=== PATIENT | female | born 1950 | race Caucasian/White ===

== ENCOUNTER → 2024-12-15 | Outpatient (CLI) | payer MEDICARE, SELFPAY ==
--- NOTE | 2024-12-15 | XR_ITS ---
Examination: Lumbar spine 3 views Technique one AP lateral coned lateral lower lumbar spine 3 views Exam date 9: December 15, 2024 1226 hours Comparison June 23, 2024 INDICATIONS: Status post lumbar spine surgery 1.5 weeks ago. FINDINGS: Additional lumbar stabilization with transpedicular fixation screws extending from L1 to the sacrum Satisfactory alignment Disc spacers IMPRESSION: Status post extensive transpedicular lumbar stabilization with satisfactory alignment
== END | disposition home or self-care (01) ==
PROVIDERS: PCP Family Medicine; Referring Provider Orthopaedic Surgery Orthopaedic Surgery of the Spine; Visit Provider Orthopaedic Surgery Orthopaedic Surgery of the Spine
DX: M54.51 Vertebrogenic low back pain (principal); Z47.89 Encounter for other orthopedic aftercare
CPT/HCPCS: 72100

== ENCOUNTER → 2025-01-11 | Outpatient (CLI) | payer MEDICARE, SELFPAY ==
--- NOTE | 2025-01-11 16:09 | XR_ITS ---
Examination: Lumbar spine, 5 views Technique: Lumbar spine AP, lateral, coned lateral lower lumbar spine, bilateral obliques 5 views Exam date and time: January 11, 2025 1621 hours Comparison December 15, 2024 INDICATIONS: Postop back surgery one month ago. FINDINGS: Stable alignment transpedicular lumbar fusion L1 to the sacrum Stable position of the orthopedic hardware No lumbar fracture No cortical bone destruction IMPRESSION: Stable and satisfactory alignment transpedicular extensive lumbar fusion
--- NOTE | 2025-01-11 16:09 | XR_ITS ---
Examination:Right hip AP, lateral, AP pelvis 3 views Technique: Hip AP lateral, AP pelvis, 3 views Exam date and time:January 11, 2025 1621 hours INDICATIONS: Right hip pain beginning in June 2024. FINDINGS: Significant osteopenia No right hip fracture or dislocation Mild right hip osteoarthritis Healed fracture left hip Extensive transpedicular lower lumbar stabilization IMPRESSION: No radiographic fracture or dislocation Mild right hip osteoarthritis.
== END | disposition home or self-care (01) ==
PROVIDERS: PCP Family Medicine; Referring Provider Family Medicine; Visit Provider Orthopaedic Surgery Orthopaedic Surgery of the Spine
DX: M16.11 Unilateral primary osteoarthritis, right hip (principal); M43.26 Fusion of spine, lumbar region; Z47.89 Encounter for other orthopedic aftercare
CPT/HCPCS: 72110; 73502

== ENCOUNTER 2025-01-29 03:47 | Inpatient (IN) | payer MEDICARE, SELFPAY ==
[2025-01-29] VITALS (12 sets, daily range): BP systolic 111–187; BP diastolic 68–90; PULSE 88–118; RESP 17–95; TEMP 36.7–37.1; O2SAT 92–100; BMI 23.8; BMI 24.4
--- NOTE | 2025-01-29 | XR_ITS ---
Examination: MRI lumbar spine without contrast Date and time of exam: January 29, 2025 at 1652 hours INDICATIONS: CT examination pelvis today cortical erosions contiguous endplates L5-S1 Technique: Multiple MRI axial and sagittal sections lumbar spine. Sagittal T2-weighted images, TR 3500, TE 118 T1 weighted transverse sections, TR 688 T8.5, T2-weighted sagittal sections T1 weighted sagittal sections TR 621, TE 30 T2 axial sections, TR 4, 190, TE 84. Findings: Status post transpedicular fusion L4-S1 with disc spacers which create magnetic susceptibility artifacts Alignment is satisfactory Diffuse lumbar dissociation On the T2-weighted images there is no increased signal in the contiguous margins at the L5-S1 level nor is there enhancement in the disc space Alignment of the vertebral bodies is satisfactory No focal disc protrusion IMPRESSION: MRI study does not confirm osteomyelitis or discitis at the L5-S1 level
--- NOTE | 2025-01-29 04:09 | XR_ITS ---
Examination: Bilateral hips AP lateral AP, lateral, AP pelvis 5 views Technique: Bilateral hips AP lateral, AP pelvis, 5 views Exam date and time:January 29, 2025, 0416 hours INDICATIONS: Patient fell today with injury to the left hip, left hip pain. FINDINGS: Healed left hip fracture, no acute left hip fracture Right hip bones of the pelvis intact Extensive lumbar stabilization procedure. IMPRESSION: No acute hip or pelvic fracture Suggest 1 day to 2 day follow-up AP pelvis if pain persists
--- NOTE | 2025-01-29 04:14 | PD.EDFALL ---
ED Fall Injury RME/HPI General Chief Complaint: Fall Stated Complaint: FALL Time Seen by Provider: 01/29/25 04:09 Arrival date/time: 01/29/25 03:47 RME / HPI RME / HPI Narrative: Dr. Boucher?s Main ED Evaluation: 74yo female with a history of HTN, HLD, recent back surgery BIBA from home presents to the ED for a fall. Patient states she was walking to the bathroom when my legs gave out and fell. She was unable to get up and laid on the floor for 3 hours prior to calling 911. Patient endorses having significant left hip pain. Patient is not on any pain medication at home. Patient denies any head strikes or loss of consciousness. Patient denies any other injuries. Patient denies any headache, neck pain, chest pain, abdominal pain or any other associated symptoms. Related Data Home Medications ?Medication ?Instructions ?Recorded ?Confirmed atorvastatin 40 mg tablet 40 mg PO QDAY 10/22/18 09/09/19 carvedilol 6.25 mg tablet 6.25 mg PO BID 10/22/18 09/09/19 losartan 100 mg tablet 100 mg PO QDAY 10/22/18 09/09/19 potassium chloride 10 mEq 10 meq PO QDAY 10/22/18 09/09/19 tablet,extended release aspirin 81 mg tablet,delayed 81 mg PO QDAY 09/09/19 09/09/19 release bupropion HCl 100 mg tablet 100 mg PO QDAY 09/09/19 09/09/19 cyclobenzaprine 10 mg tablet 10 mg PO HS 09/09/19 09/09/19 furosemide 40 mg tablet 40 mg PO QDAY 09/09/19 09/09/19 gabapentin 600 mg tablet 600 mg PO BID 09/09/19 09/09/19 mirtazapine 30 mg tablet 30 mg PO QDAY 09/09/19 09/09/19 montelukast 10 mg tablet 10 mg PO QDAY 09/09/19 09/09/19 (Singulair) trazodone 100 mg tablet 100 mg PO HS 09/09/19 09/09/19 Previous Rx's ?Medication ?Instructions ?Recorded pantoprazole 40 mg tablet,delayed 40 mg PO QDAY #90 tabs 10/25/18 release clopidogrel 75 mg tablet (Plavix) 75 mg PO QDAY #90 tabs 09/11/19 isosorbide mononitrate 30 mg 30 mg PO QDAY #30 tabs 09/11/19 tablet,extended release 24 hr sulfamethoxazole 800 1 tab PO BID #14 tabs 12/25/23 mg-trimethoprim 160 mg tablet (Bactrim DS) Allergies Allergy/AdvReac Type Severity Reaction Status Date / Time morphine Allergy Verified 01/29/25 04:06 Review of Systems Review of Systems Systems Reviewed: All systems reviewed, normal except as documented Past Medical History Past Medical History NEUROLOGIC: Negative Neurological Disorders or Seizures CARDIAC: Positive Cardiac Disorders, Peripheral Vascular Disease, Hypercholesterolemia and Hypertension; Negative Congestive Heart Failure RESPIRATORY: Negative Chronic Obstructive Pulmonary Disease (COPD) or Asthma GASTROINTESTINAL: Positive Gastrointestinal Disorders and Ulcer; Negative Hepatitis or Colorectal Cancer GENITOURINARY: Negative Genitourinary Disorders, Renal Disease or Prostate Cancer REPRODUCTIVE: Positive Previous Pregnancies; Negative Breast Cancer or Testicular Cancer MUSCULOSKELETAL: Positive Musculoskeletal Disorders, Arthritis, Rheumatoid Arthritis and Degenerative Disk Disease; Negative Bone Cancer or Carpal Tunnel Syndrome ENT: Negative Cataracts ENDOCRINE: Negative Endocrine Disorders, Diabetes Mellitus Type 1 or Diabetes Mellitus Type 2 HEMATOLOGIC: Negative Blood Disorders or Sickle Cell Disease OTHER HISTORY: Positive Hospitalization; Negative Autoimmune Disease, Down Syndrome, Developmental Delay, Shingles, Falls, Blood Transfusions, Blood Transfusion Reaction, Anesthesia Reactions, Organ Transplant, Chemotherapy, Radiation Therapy, Hyperbaric Therapy, MRSA, VRSA, Vancomycin-Resistant Enterococci, Human Immunodeficiency Virus (HIV), Chicken Pox, Measles, Mumps, Rubella (Sinhala Measles), Pertussis, Clostridium Difficile, Breast Cancer, Cervical Cancer, Colorectal Cancer, Lung Cancer, Ovarian Cancer, Prostate Cancer or Testicular Cancer Family History FAMILY HISTORY: Positive Family Psychiatric Problems (DEPRESSION) and Family Cardiac Disorders (HYPERTENSION); Negative Family Respiratory Disorders, Family Gastrointestinal Problems, Family Cancer, Family Surgery or Family Anesthesia Reaction Surgical History SURGICAL: Positive Vascular Surgery (in legs per patient) and Tubal Ligation; Negative Cardiac Surgery, Open Heart Surgery, Coronary Artery Bypass Graft, Valve Replacement, Coronary Stent, Cardiac Catheterization, Pacemaker, Angiogram, Auto Implanted Cardiovert Defib, Carotid Endarterectomy, Endocrine Surgery, Thyroidectomy, Ear Surgery, Tympanostomy Tube, Eye Surgery, Nose Surgery, Oral Surgery, Tonsillectomy, Adenoidectomy, Cochlear Implant, Corneal Transplant, Throat Surgery, Abdominal Surgery, Tracheostomy, Gastric Bypass Surgery, Gastrostomy, Bowel Surgery, Nephrectomy, Transurethral Resection, Amputation, Arthroscopy, Neurologic Surgery, Brain Shunt, Mastectomy, Lumpectomy, Hysterectomy, Section, Vasectomy or Organ Transplant Social History SMOKING STATUS: Current every day smoker SECOND HAND EXPOSURE: Yes ED Exam Narrative Physical exam: GENERAL APPEARANCE: alert and oriented x 4, well-developed, well-nourished, no acute distress VITALS: All vitals were reviewed and the pulse ox is 98% on room air, which is normal according to my interpretation. HEENT: Normocephalic, atraumatic; pupils equal, round, reactive to light; EOMI; mucous membranes pink, moist; oropharynx clear NECK: Supple LUNGS: CTABL; no wheezes, no rales, no rhonchi HEART: Regular rate, regular rhythm; normal S1, S2; no murmurs ABDOMEN: non distended; normal BS; soft, no tenderness, no guarding, no rebound; no masses, no organomegaly, no hernia BACK: no CVA tenderness EXTREMITIES: LLE is shortened, limited ROM 2/2 pain; no edema NEUROLOGIC: awake; alert and oriented x4; cranial nerves II-XII grossly intact; no focal sensory or motor deficits PSYCHIATRIC: appropriate mood and affect SKIN: warm, dry, normal color; no rashes Course Quality Measures none Orders Category Date Time Status Nuno [Urinary Catheter] QS Care 01/29/25 04:33 Active Insert IV NOW Care 01/29/25 04:[address] pelvis wo con Stat Exams 01/29/25 05:17 Ordered XR hip LT w pelvis min 4V Stat Exams 01/29/25 04:09 Taken Ondansetron Inj [Zofran Inj] Med 01/29/25 04:14 Discontinued 4 mg IVP X1 ONE fentaNYL INJ [Sublimaze Inj] Med 01/29/25 04:14 Discontinued 100 mcg IVP X1 ONE Vital Signs Vital signs: Vital Signs Temperature 98.2 F 01/29/25 03:48 Pulse Rate 107 H 01/29/25 03:48 Respiratory Rate 18 01/29/25 03:48 Blood Pressure 152/68 H 01/29/25 03:48 Pulse Oximetry (%) 97 01/29/25 03:48 Oxygen Delivery Method Room Air 01/29/25 03:48 Fall MDM Narrative MDM Narrative:: Scribe Attestation: 01/29/25 - I, Muriel Rl, am scribing for and in the presence of Dr. Boucher. Patient data External records reviewed:: [facility] previous records (Per chart review, patient was seen here on 12/25/23 for cellulitis.) Clinical information provided by:: patient Social determinants that could affect healthcare access:: none Patient has the following chronic illnesses:: HTN, HLD How is presenting disease/condition affected by chronic disease/condition?: uneffected by Evaluation data The following diagnostics were reviewed and interpreted by me:: radiology exam(s) Lab and/or radiology exams considered but not ordered:: none Interpretation Summary: Left hip with pelvis x-ray shows hardware in place, no fracture, no dislocation, according to my interpretation. Medications / Prescriptions Medications or Prescriptions considered but not ordered:: none Medication administrations:: Medication Administration History Discontinued Medications Fentanyl Citrate (Fentanyl Cit Inj 50 Mcg/Ml Amp 2ml) 100 mcg IVP X1 ONE Stop: 01/29/25 04:15 Last Admin: 01/29/25 04:32 Dose: 100 mcg Documented By: CAROLINE Ondansetron HCl (Ondansetron Inj 2 Mg/Ml Inj 2 Ml) 4 mg IVP X1 ONE Stop: 01/29/25 04:15 Last Admin: 01/29/25 04:32 Dose: 4 mg Documented By: CAROLINE see above Consultations Consultation(s) initiated? (list below): No Diagnosis Fall Differential Diagnosis: other (hip fracture, hip dislocation, contusion, pelvic fracture) Most likely diagnosis given after review of the tests above:: dx pending at sign out Admission Indicated Admission indicated?: not indicated Admission Request Was there a request for admission?: No Disposition Plan Disposition Plan: other (specify) (Signed out to Dr. Mejia at [address] hip.) Discharge Plan Prescriptions/Referrals Prescriptions/Med Rec: No Action cyclobenzaprine 10 mg Tablet 10 mg PO HS furosemide 40 mg Tablet 40 mg PO QDAY gabapentin 600 mg Tablet 600 mg PO BID aspirin 81 mg Tablet,Delayed Release (Dr/Ec) 81 mg PO QDAY bupropion HCl 100 mg Tablet 100 mg PO QDAY mirtazapine 30 mg Tablet 30 mg PO QDAY montelukast [Singulair] 10 mg Tablet 10 mg PO QDAY trazodone 100 mg Tablet 100 mg PO HS clopidogrel [Plavix] 75 mg Tablet 75 mg PO QDAY Qty: 90 0RF isosorbide mononitrate 30 mg Tablet Extended Release 24 Hr 30 mg PO QDAY Qty: 30 2RF atorvastatin 40 mg Tablet 40 mg PO QDAY carvedilol 6.25 mg Tablet 6.25 mg PO BID potassium chloride 10 mEq Tablet Extended Release 10 meq PO QDAY losartan 100 mg Tablet 100 mg PO QDAY pantoprazole 40 mg Tablet,Delayed Release (Dr/Ec) 40 mg PO QDAY Qty: 90 0RF sulfamethoxazole-trimethoprim [Bactrim DS] 800-160 mg tablet 1 tab PO BID Qty: 14 0RF Referrals: Arabella Barney MD [Primary Care Provider] - In 1 week Problem List Clinical Impression: Left hip pain Patient/Caregiver Discharge Instructions Print Language: Wallisian
[2025-01-29] MEDS: fentaNYL CIT INJ 50 mCg/ML AMP 2ML 100 MCG IVP ×2 (04:32→07:02)
[2025-01-29] MEDS: ONDANSETRON INJ 2 MG/ML INJ 2 ML 4 MG IVP ×2 (04:32→07:03)
--- NOTE | 2025-01-29 05:17 | XR_ITS ---
Examination: CT pelvis without intravenous contrast. 2-D sagittal and coronal reconstructions. Date and time of exam:January 29, 2025, 0724 hours INDICATIONS: Patient fell today with injury to the pelvis and hips, hip pain and pelvic pain CTDI: vol (mGy) :6.79 DLP: (mGycm) : 206 Technique: Multiple 3 mm axial sections of the pelvis have been obtained with the 64 slice high resolution scanner. 2-D sagittal and coronal reconstructions. Low dose protocols were performed. One or more of the following dose reduction techniques were used; automated exposure control, adjustment of the mA and/or KV according to patient size, use of iterative reconstruction technique. Findings: Atrophic uterus No pelvic hematoma Urinary bladder is contracted around a Nuno catheter Severe osteopenia Partial visualization transpedicular fusion L4-S1 with disc spacers There are cortical erosions along the contiguous endplates L5-S1 Sagittal image 119 is suspicious for small nondisplaced fracture first coccygeal segment Anterior rami intact Right hip intact Healed left hip fracture with satisfactory position orthopedic hardware No acute left hip fracture IMPRESSION: Findings suspicious for small nondisplaced fracture first coccygeal segment, the appearance should be clinically correlated No acute hip fracture Cortical erosions along the contiguous endplates L5-S1, consider osteomyelitis
--- NOTE | 2025-01-29 07:15 | PC.NURSE ---
ASSUMED CARE AT THIS TIME, PT MEDICATED FOR PAIN, SPO2 DROPPED TO 88, THIS RN PLACED PT ON 2L VIA NC PT IS BACK UP TO HER 97%. VSS ON TELE AT THIS TIME. WILL CONT W/POC
--- NOTE | 2025-01-29 08:56 | EDNOTE_ITS ---
Emergency Room Addendum Addendum Narrative: 0600: Care assumed from Dr. Boucher, the previous shift emergency physician. Past medical, surgical, social and family history reviewed. Vitals and home medications reviewed. I will assume the care of the patient at this time, pending CT pelvis report. Please refer to the emergency department record for history and examination from initial visit.?The following addendum documentation note is intended to reflect any pending information, findings, or radiology results not included in the patient?s initial chart. On my examination, patient has no neurological deficits and no sensory deficits. I spoke with resident working with Dr. Jacobson for admission. Discussed patients PMHx, HPI, ED course, exam findings, labs, and radiology results. The hospitalist agree to accept the patient for admission. RADIOLOGY Ordering Physician: Sharon Boucher MD Date of Service: 01/29/25 Procedure(s): CT pelvis con Accession Number(s): [id number] cc: Suleman Espinoza MD; Arabella Valencia MD; Sharon Boucher MD~ Examination: CT pelvis without intravenous contrast. 2-D sagittal and coronal reconstructions. Date and time of exam:January 29, 2025, 0724 hours INDICATIONS: Patient fell today with injury to the pelvis and hips, hip pain and pelvic pain CTDI: vol (mGy) :6.79 DLP: (mGycm) : 206 Technique: Multiple 3 mm axial sections of the pelvis have been obtained with the 64 slice high resolution scanner. 2-D sagittal and coronal reconstructions. Low dose protocols were performed. One or more of the following dose reduction techniques were used; automated exposure control, adjustment of the mA and/or KV according to patient size, use of iterative reconstruction technique. Findings: Atrophic uterus No pelvic hematoma Urinary bladder is contracted around a Nuno catheter Severe osteopenia Partial visualization transpedicular fusion L4-S1 with disc spacers There are cortical erosions along the contiguous endplates L5-S1 Sagittal image 119 is suspicious for small nondisplaced fracture first coccygeal segment Anterior rami intact Right hip intact Healed left hip fracture with satisfactory position orthopedic hardware No acute left hip fracture IMPRESSION: Findings suspicious for small nondisplaced fracture first coccygeal segment, the appearance should be clinically correlated No acute hip fracture Cortical erosions along the contiguous endplates L5-S1, consider osteomyelitis Dictated By:Suleman Espinoza MD Signed By:<Electronically signed by Suleman Espinoza MD in [place]>01/29/25 0750
[2025-01-29] MEDS: HYDROmorphone INJ 2 MG/ML VIAL 1 MG IVP (09:32)
--- NOTE | 2025-01-29 09:41 | PC.NURSE ---
PT MEDICATED FOR PAIN, MD AT BEDSIDE ASSESSING, GAVE VERBAL THAT PT CAN EAT. DAUGHTER WENT TO GET HER BREAKFAST SHE DID NOT WANT ANYTHING WE HAVE HERE. VSS ON TELE, CALL [facility] IN [place]. PT AND DAUGHTER IN AGREEMENT W/POC
--- NOTE | 2025-01-29 11:47 | PD.RESHP ---
Documentation for date of: 01/29/25 HPI History of Present Illness History of present illness: Ms. Henry is a 74-year-old female with past medical history significant for COPD (not on home oxygen), hypertension, peripheral artery disease, coronary artery disease 1 stent presented to the ED after ground-level fall. Patient states last night she was in a lot of pain when getting out of bed to use the restroom she had a ground-level fall and was unable to get back up. Patient denies any numbness, tingling, bowel or bladder incontinence. Patient states that she has had multiple back surgeries including the most recent one in December in [place] by Dr. Kenny. Patient denies any fevers or chills. Patient denies any syncopal episodes or dizziness or palpitations. Patient denies any chest pain palpitations, abdominal pain or diarrhea. ED course In the ED patient's blood pressure is 152/68, pulse 107, respirations 18, patient saturating 97% on room air Labs are significant for WBC 14.6, hemoglobin 11.6, hematocrit 34.4 In the ED patient received Zofran x 2, fentanyl 100 mcg x 2 Dilaudid [address] of pelvis: Suspicious for an small nondisplaced fracture first coccygeal segment, cortical erosions along the contagious endplate L5-S1 PMH: COPD, hypertension, CAD status post stent, PAD PSH: Brain surgery neck surgery, back surgery x2, shoulder surgery, carpal tunnel surgery, bilateral bunion surgery SH: Half pack cigarettes daily for 68 years, occasionally smokes marijuana, denies alcohol or illicit drug use Home meds: Trelegy and albuterol inhalers, Lasix and remainder patient cannot recall therefore med rec pending Review of Systems Review of Systems Systems Reviewed: All systems reviewed, normal except as documented Exam Vital Signs Temp Pulse Resp BP Pulse Ox O2 Del Method 98.0 F 101 H 17 127/79 97 Room Air 01/29/25 10:01/29/25 10:01/29/25 10:01/29/25 10:01/29/25 10:01/29/25 10:00 Narrative Exam GENERAL: A&Ox3 awake, in significant distress due to pain NEURO: no focal neurological deficits HEENT: Atraumatic, Normocephalic. mucous membranes moist. Eyes open, symmetrical, & clear HEART: Normal Heart Sounds LUNGS: Clear to auscultation with no wheezing or crackles. ABDOMEN: soft, non-distended, non-tender, bowel sounds heard, no guarding or rebound tenderness SKIN: No Rash or ecchymoses EXTREMITIES: No edema, able to move all 4 extremities, pedal pulses palpated Results: Labs 01/29/25 14:47 01/29/25 14:47 Quality Measures Quality Measures none Advance care planning discussed with:: patient Medications Home Medications and Allergies Home Medications ?Medication ?Instructions ?Recorded ?Confirmed ?Type atorvastatin 40 mg tablet 40 mg PO QDAY 10/22/18 09/09/19 History carvedilol 6.25 mg tablet 6.25 mg PO BID 10/22/18 09/09/19 History losartan 100 mg tablet 100 mg PO QDAY 10/22/18 09/09/19 History potassium chloride 10 mEq 10 meq PO QDAY 10/22/18 09/09/19 History tablet,extended release aspirin 81 mg tablet,delayed 81 mg PO QDAY 09/09/19 09/09/19 History release bupropion HCl 100 mg tablet 100 mg PO QDAY 09/09/19 09/09/19 History cyclobenzaprine 10 mg tablet 10 mg PO HS 09/09/19 09/09/19 History furosemide 40 mg tablet 40 mg PO QDAY 09/09/19 09/09/19 History gabapentin 600 mg tablet 600 mg PO BID 09/09/19 09/09/19 History mirtazapine 30 mg tablet 30 mg PO QDAY 09/09/19 09/09/19 History montelukast 10 mg tablet 10 mg PO QDAY 09/09/19 09/09/19 History (Singulair) trazodone 100 mg tablet 100 mg PO HS 09/09/19 09/09/19 History Allergies Allergy/AdvReac Type Severity Reaction Status Date / Time morphine Allergy Severe Rash Verified 01/29/25 21:07 Visit Medications Hydrocodone Bitart/Acetaminophen (Hydrocodone/Apap 10/325 Tab) 1 tab PO Q4HR PRN PRN Reason: Moderate Pain 4-6 Stop: 02/03/25 11:43 Lidocaine (Lidocaine 5% 1 Patch) 1 patch TOP DAILY PRN PRN Reason: LOCALIZED PAIN Stop: 02/28/25 11:40 Morphine Sulfate (Morphine Sulf Inj 10 Mg/Ml Vial) 2 mg IVP Q4HR PRN PRN Reason: severe pain 7-10 Stop: 02/03/25 11:45 Discontinued Medications Fentanyl Citrate (Fentanyl Cit Inj 50 Mcg/Ml Amp 2ml) 100 mcg IVP X1 ONE Stop: 01/29/25 04:15 Last Admin: 01/29/25 04:32 Dose: 100 mcg Fentanyl Citrate (Fentanyl Cit Inj 50 Mcg/Ml Amp 2ml) 100 mcg IVP X1 ONE Stop: 01/29/25 06:50 Last Admin: 01/29/25 07:02 Dose: 100 mcg Hydromorphone HCl (Hydromorphone Inj 2 Mg/Ml Vial) 1 mg IVP Q4H PRN PRN Reason: PAIN SCALE 4-10(Mod-Sev Stop: 02/03/25 09:13 Last Admin: 01/29/25 09:32 Dose: 1 mg Nicotine (Nicotine Patch 14 Mg/24 Hr Patch.Td24) 14 mg TOP Q24H ONE Stop: 01/29/25 11:42 Ondansetron HCl (Ondansetron Inj 2 Mg/Ml Inj 2 Ml) 4 mg IVP X1 ONE Stop: 01/29/25 04:15 Last Admin: 01/29/25 04:32 Dose: 4 mg Ondansetron HCl (Ondansetron Inj 2 Mg/Ml Inj 2 Ml) 4 mg IVP X1 ONE; Protocol Stop: 01/29/25 06:50 Last Admin: 01/29/25 07:03 Dose: 4 mg Assessment & Plan Plan Ms. Henry is a 74-year-old female with past medical history significant for COPD (not on home oxygen), hypertension, peripheral artery disease, coronary artery disease 1 stent presented to the ED after ground-level fall. Patient is admitted due to intractable pain secondary to coccygeal fracture. # Ground-level, mechanical fall #First coccygeal segment fracture #Intractable pain # Possible cortical erosions, L5-S1 # History of spinal surgery with hardware placement, unspecified specific type -Patient had a ground-level fall and following the fall patient had intractable pain without improvement. CT of pelvis: Suspicious for an small nondisplaced fracture first coccygeal segment, cortical erosions along the contagious endplate L5-S1 Plan: - Pain control with as needed morphine, [place] 10 and lidocaine patch -Physical therapy ordered -MRI of the lumbar spine is ordered #Primary hypertension - On admission patient's blood pressure is 152/68 however without any medication drop to 111/80 - Med rec is pending, will resume antihypertensive when able #COPD #Tobacco use disorder - Patient continues to smoke half a pack of cigarettes daily for the past 68 years - Does not use home oxygen, however he uses Trelegy inhaler as well as albuterol Plan: - Nicotine patch 14 mg every 24 hours - DuoNebs ordered as needed History of CAD s/p stent History of PAD s/p bypass - Pending med rec Health Maintenance Disposition: Medsurg DVT Prophylaxis: Heparin 5000 units SC Q8 hrs GI Prophylaxis: not indicated Diet: regular diet Lines: Peripheral lines Code status: DNR/DNI Assessment and plan discussed with my attending physician Dr. Kavon Parra (PGY-1)- Internal medicine resident Attending Provider Attestation/Addendum I have discussed and was present for the essential components of the history, physical examination, diagnosis, and treatment plan with the resident. I agree with the patient's care as documented by the resident and amended herein by me. Rajan Jacobson DO. Although this document has been carefully reviewed, there may still be some phonetic and other typographical errors. These errors are purely grammatical due to imperfections in the software program and should not be construed in any way to compromise the substance of the patient's medical care during this visit.
[2025-01-29] MEDS: LIDOCAINE 5% 1 PATCH TOP (12:00)
--- NOTE | 2025-01-29 12:05 | PC.CC ---
Patient is a 74 year-old female who presents to the hospital for COCCYGEAL Fracture. CARAWJulia and SUPPLY CHAIN ANALYST Student Katherine made [id number] contact with patient. ASW introduced self, role, and reason for visit. Patient appeared alert and oriented to self, location, and situation. Patient provided consent for SUPPLY CHAIN ANALYST to remain in the room during assessment. Patient was pleasant and engaged in initial assessment. Patient confirmed information on demographics and reports she is currently residing with a friend. Patient reports in the event she is unable to make her own medical decisions her medical decision maker is her daughter, Lucy Galloway . Patient reports that prior to the fracture she was able to ambulate independently and complete her own ADLs. Patient reports she does not require any DME and is not a dialysis patient. Patient's primary provider is Arabella Barney and her pharmacy of choice is [facility] on [address]. Upon discharge patient would like to go to a SNF. director career services to follow up with any discharge needs.
[2025-01-29] MEDS: NICOTINE PATCH 14 MG/24 HR PATCH.TD24 TOP (13:25)
[2025-01-29 14:56] LABS: Basophils # (Auto) 0.0 Thou/mm3 (0.0-0.2); Basophils % (Auto) 0 % (0-2.5); Eosinophils # (Auto) 0.0 Thou/mm3 (0.0-0.5); Eosinophils % (Auto) 0 % (0-10); Hematocrit 34.4 % (36.0-46.0); Hemoglobin 11.6 g/dL (12.0-16.0); Immature Granulocytes Auto 0.04 Thou/mm3 (0.00-0.00); Lymphocytes # (Auto) 1.3 Thou/mm3 (1.0-4.8); Lymphocytes % (Auto) 9 % (10-50); Mean Corpuscular HGB Conc 33.7 g/dl (31.0-37.0); Mean Corpuscular Hemoglobin 30.1 pg (25.0-35.0); Mean Corpuscular Volume 89 fL (80-100); Monocytes # (Auto) 1.3 Thou/mm3 (0.0-0.8); Monocytes % (Auto) 9 % (0-12); Neutrophils # (Auto) 11.9 Thou/mm3 (1.8-7.7); Neutrophils % (Auto) 81 % (37-80); Nucleated Red Blood Cell # 0.00 Thou/mm3 (0.00-0.00); Nucleated Red Blood Cell % 0 /100 WBC (0); Platelet Count 326 Thou/mm3 (140-440); RDW Standard Deviation 44.3 fL (36.4-46.3); Red Blood Count 3.86 Miln/mm3 (4.00-5.20); White Blood Count 14.6 Thou/mm3 (3.6-11.0)
[2025-01-29 15:13] LABS: Alanine Aminotransferase 19 U/L (10-49); Albumin, Serum 3.8 gm/dL (3.4-4.8); Albumin/Globulin Ratio 1.3 (1.2-2.2); Alkaline Phosphatase 114 U/L (46-116); Anion Gap 5 (7-16); Aspartate Amino Transferase 13 U/L (0-34); BUN/Creatinine Ratio 10 Ratio (12-20); Bilirubin,Total 0.4 mg/dL (0.3-1.2); Blood Urea Nitrogen 7 mg/dL (9-23); Calcium 8.7 mg/dL (8.3-10.6); Calcium (Corrected) 8.9 mg/dL (8.5-10.1); Carbon Dioxide 24.8 mMol/L (20.0-31.0); Chloride 107 mMol/L (98-107); Creatinine (Component) 0.7 mg/dL (0.6-1.3); Estimated Creatinine Clearance 56.7 mL/min (>60); Globulin 2.9 gm/dL (2.3-3.5); Glucose 148 mg/dL (74-106); Osmolality,Calculated 274 (275-295); Potassium 3.7 mMol/L (3.4-5.1); Sodium 137 mMol/L (136-145); Total Protein 6.7 gm/dL (5.7-8.2); eGFR > 60 See Note
[2025-01-29 16:29] LABS: Creatine Kinase 38 U/L (34-171)
--- NOTE | 2025-01-29 16:29 | PC.NURSE ---
REPORT RECEIVED FROM MARION HORAN.
[2025-01-29] MEDS: MORPHINE SULF INJ 10 MG/ML VIAL 2 MG IVP ×2 (16:37→21:05)
--- NOTE | 2025-01-29 17:08 | PC.NURSE ---
REPORT WAS GIVEN TO FLOOR RN PRIOR TO PT GOING TO MRI, MRI TO TAKE PT TO FLOOR AFTER IMG DONE. PT WAS MEDICATED FOR PAIN PRIOR TO GOING TO MRI.
--- NOTE | 2025-01-29 17:40 | PC.NURSE ---
PATIENT IN ROOM ALERT AND ORIENTED X3 C/O PAIN, PT ALLERGIC TO MORPHINE. PAIN MEDICATION MORPHINE MD CALLED.
--- NOTE | 2025-01-29 21:14 | PC.NURSE ---
re med rec- Per pt, daughter will bring home meds lists in the morning,
[2025-01-29] MEDS: HEPARIN SOD INJ 5000 UNIT/ML VIAL SC (21:19)
[2025-01-30] VITALS (9 sets, daily range): BP systolic 108–173; BP diastolic 66–92; PULSE 81–109; RESP 17–95; TEMP 36.1–37.1; O2SAT 92–98
[2025-01-30] MEDS: MORPHINE SULF INJ 10 MG/ML VIAL 2 MG IVP ×2 (01:53→07:29)
[2025-01-30] MEDS: HEPARIN SOD INJ 5000 UNIT/ML VIAL SC ×3 (06:25→21:32)
[2025-01-30] MEDS: LIDOCAINE 5% 1 PATCH TOP (08:43)
[2025-01-30] MEDS: HYDROmorphone INJ 2 MG/ML VIAL 1 MG IVP ×3 (09:53→23:52)
[2025-01-30] MEDS: SENNA/DOCUSATE SOD 1 TAB TABLET PO (10:28)
[2025-01-30] MEDS: NICOTINE PATCH 14 MG/24 HR PATCH.TD24 TOP (10:28)
--- NOTE | 2025-01-30 12:12 | ESPR_ITS ---
Documentation for date of: 01/30/25 Subjective Subjective Interval history: No acute overnight events reported. Patient seen and examined at bedside this morning. Vitals are stable slightly elevated blood pressure before medications. Labs are largely unremarkable except for mild leukocytosis with WBC of 14.6. patient is saturating well on room air family is at bedside. patient continues to have significant amount of back pain. Patient is allergic to morphine encephalopathic as well as agitated with morphine and patient received morphine twice in the last 24 hours. Will discontinue morphine and switch to Dilaudid IV and p.o. and will continue lidocaine patch. Patient will need physical therapy once the pain is well-controlled and rehab placement. Exam Vital Signs Temp Pulse Resp BP Pulse Ox O2 Del Method 97.9 F 89 20 140/85 H 95 Room Air 01/30/25 08:00 01/30/25 08:00 01/30/25 08:00 01/30/25 08:00 01/30/25 08:00 01/30/25 08:00 Narrative Exam GENERAL: A&Ox3 awake, in significant distress due to pain NEURO: no focal neurological deficits HEENT: Atraumatic, Normocephalic. mucous membranes moist. Eyes open, symmetrical, & clear HEART: Normal Heart Sounds LUNGS: Clear to auscultation with no wheezing or crackles. ABDOMEN: soft, non-distended, non-tender, bowel sounds heard, no guarding or rebound tenderness SKIN: No Rash or ecchymoses EXTREMITIES: No edema, able to move all 4 extremities, pedal pulses palpated Objective Labs 01/29/25 14:47 01/29/25 14:47 Labs: Laboratory Results - last 24 hr 01/29/25 14:47 WBC 14.6 H RBC 3.86 L Hgb 11.6 L Hct 34.4 L MCV 89 MCH 30.1 MCHC 33.7 RDW Std Deviation 44.3 Plt Count 326 Neut % (Auto) 81 H Lymph % (Auto) 9 L [place] % (Auto) 9 Eos % (Auto) 0 Baso % (Auto) 0 Neut # (Auto) 11.9 H Lymph # (Auto) 1.3 [place] # (Auto) 1.3 H Eos # (Auto) 0.0 Baso # (Auto) 0.0 Immature Gran # (Auto) 0.04 H Absolute Nucleated RBC 0.00 Immature Gran % 0 Nucleated RBC % 0 Sodium 137 Potassium 3.7 Chloride 107 Carbon Dioxide 24.8 Anion Gap 5 L BUN 7 L Creatinine 0.7 Estim Creat Clear Calc 56.7 L eGFR > 60 BUN/Creatinine Ratio 10 L Glucose 148 H Calculated Osmolality 274 L Calcium 8.7 Corrected Calcium 8.9 Total Bilirubin 0.4 AST 13 ALT 19 Alkaline Phosphatase 114 Total Creatine Kinase 38 Total Protein 6.7 Albumin 3.8 Globulin 2.9 Albumin/Globulin Ratio 1.3 Quality Measures Quality Measures none Advance care planning discussed with:: patient Assessment & Plan Assessment Current Active Medications: Generic Name Dose Route Start Last Admin Trade Name Freq PRN Reason Stop Dose Admin Hydrocodone Bitart/Acetaminophen 1 tab 01/29/25 11:44 01/30/25 08:36 Hydrocodone/Apap 10/325 Tab PO 02/03/25 11:43 1 tab Q4HR PRN Administration Moderate Pain 4-6 Albuterol/Ipratropium 3 ml 01/29/25 20:06 Albuterol/Ipratropium (Duoneb) Rt [place] 3 Ml Nebu INH 02/28/25 20:05 Q2HR PRN SHORTNESS OF BREATH OR WHEEZE Heparin Sodium (Porcine) 5,000 unit 01/29/25 22:00 01/30/25 06:25 Heparin Sod Inj 5000 Unit/Ml Vial SC 02/12/25 21:59 5,000 unit Q8HR SANDRA Administration Hydromorphone HCl 1 mg 01/30/25 09:46 01/30/25 09:53 Hydromorphone Inj 2 Mg/Ml Vial IVP 02/04/25 09:19 1 mg Q4HR PRN Administration Pain 7-10 Lidocaine 1 patch 01/29/25 11:41 01/30/25 08:43 Lidocaine 5% 1 Patch TOP 02/28/25 11:40 1 patch DAILY PRN Administration LOCALIZED PAIN Nicotine 14 mg 01/30/25 10:15 01/30/25 10:28 Nicotine Patch 14 Mg/24 Hr Patch.Td24 TOP 03/01/25 10:14 14 mg QDAY SANDRA Administration Sennosides 1 tab 01/30/25 10:15 01/30/25 10:28 Senna/Docusate Sod 1 Tab Tablet PO 03/01/25 10:14 1 tab QDAY SANDRA Administration Protocol Plan Ms. Henry is a 74-year-old female with past medical history significant for COPD (not on home oxygen), hypertension, peripheral artery disease, coronary artery disease 1 stent presented to the ED after ground-level fall. Patient is admitted due to intractable pain secondary to coccygeal fracture. #Ground-level, mechanical fall #First coccygeal segment fracture #Intractable pain # Possible cortical erosions, L5-S1 # History of spinal surgery with hardware placement, unspecified specific type -Patient had a ground-level fall and following the fall patient had intractable pain without improvement. -Pt has extensive history of multiple orthopedic surgeries, inlcuding back surgey in mar 2024 and revision in december 2024. And is in chronic pain and is being seen by pain management. CT of pelvis: Suspicious for an small nondisplaced fracture first coccygeal segment, cortical erosions along the contagious endplate L5-S1 Plan: -Pain control with as needed morphine, [place] 10 and lidocaine patch -Resumed home gabapentin -Physical therapy ordered #Primary hypertension - On admission patient's blood pressure is 152/68 however without any medication drop to 111/80 - Med rec is pending, will resume antihypertensive when able #COPD #Tobacco use disorder - Patient continues to smoke half a pack of cigarettes daily for the past 68 years - Does not use home oxygen, however he uses Trelegy inhaler as well as albuterol Plan: - Nicotine patch 14 mg every 24 hours - DuoNebs ordered as needed History of CAD s/p stent History of PAD s/p bypass - Pending med rec Health Maintenance Disposition: Medsur DVT Prophylaxis: Heparin 5000 units SC Q8 hrs GI Prophylaxis: not indicated Diet: regular diet Lines: Peripheral lines Code status: DNR/DNI Assessment and plan discussed with my attending physician Dr. Kavon Parra (PGY-1)- Internal medicine resident Attending Provider Attestation/Addendum I have discussed and was present for the essential components of the history, physical examination, diagnosis, and treatment plan with the resident. I agree with the patient's care as documented by the resident and amended herein by me. Rajan Jacobson DO. Patient seen and evaluated this AM. No acute events overnight, vital signs stable, patient afebrile, patient still endorsing a copious amount of pain in her low back area. She also states that she gets encephalopathic and lightheaded with morphine hence that has been changed to Dilaudid. The patient states she does have an appointment next week with pain management and she also stated she would prefer to be discharged to SNF as they can help her with transportation and physical therapy while she improves. I did tell her that she will need to follow-up with her neurosurgeon, Dr. Kenny for further evaluation considering her pain appears to be worsening and is chronic and has already had several surgeries in her back. The patient understood, once we get her pain under control with oral, IV and fentanyl patches, patient can be discharged to SNF. Although this document has been carefully reviewed, there may still be some phonetic and other typographical errors. These errors are purely grammatical due to imperfections in the software program and should not be construed in any way to compromise the substance of the patient's medical care during this visit.
--- NOTE | 2025-01-30 12:43 | PC.PT ---
01/30/2025 PT eval performed and recommends patient home w/ walker and around the clock CG to assist or to rehab center for additional therapies to improve safety and patient's functional indep to live at home
[2025-01-30] MEDS: GABAPENTIN 300 MG CAPSULE 600 MG PO ×2 (13:15→21:31)
[2025-01-31] VITALS (8 sets, daily range): BP systolic 107–154; BP diastolic 54–88; PULSE 88–110; RESP 17–20; TEMP 36.2–36.8; O2SAT 93–97
[2025-01-31] MEDS: HEPARIN SOD INJ 5000 UNIT/ML VIAL SC ×3 (05:19→21:15)
[2025-01-31] MEDS: HYDROmorphone INJ 2 MG/ML VIAL 1 MG IVP ×4 (05:20→21:13)
[2025-01-31 06:00] LABS: Basophils # (Auto) 0.0 Thou/mm3 (0.0-0.2); Basophils % (Auto) 0 % (0-2.5); Eosinophils # (Auto) 0.0 Thou/mm3 (0.0-0.5); Eosinophils % (Auto) 0 % (0-10); Hematocrit 31.4 % (36.0-46.0); Hemoglobin 10.4 g/dL (12.0-16.0); Immature Granulocytes Auto 0.05 Thou/mm3 (0.00-0.00); Lymphocytes # (Auto) 1.8 Thou/mm3 (1.0-4.8); Lymphocytes % (Auto) 17 % (10-50); Mean Corpuscular HGB Conc 33.1 g/dl (31.0-37.0); Mean Corpuscular Hemoglobin 29.7 pg (25.0-35.0); Mean Corpuscular Volume 90 fL (80-100); Monocytes # (Auto) 1.0 Thou/mm3 (0.0-0.8); Monocytes % (Auto) 9 % (0-12); Neutrophils # (Auto) 8.0 Thou/mm3 (1.8-7.7); Neutrophils % (Auto) 73 % (37-80); Nucleated Red Blood Cell # 0.00 Thou/mm3 (0.00-0.00); Nucleated Red Blood Cell % 0 /100 WBC (0); Platelet Count 343 Thou/mm3 (140-440); RDW Standard Deviation 43.5 fL (36.4-46.3); Red Blood Count 3.50 Miln/mm3 (4.00-5.20); White Blood Count 10.9 Thou/mm3 (3.6-11.0)
[2025-01-31 06:25] LABS: Alanine Aminotransferase 15 U/L (10-49); Albumin, Serum 3.6 gm/dL (3.4-4.8); Albumin/Globulin Ratio 1.3 (1.2-2.2); Alkaline Phosphatase 107 U/L (46-116); Anion Gap 4 (7-16); Aspartate Amino Transferase 15 U/L (0-34); BUN/Creatinine Ratio 10 Ratio (12-20); Bilirubin,Total 0.4 mg/dL (0.3-1.2); Blood Urea Nitrogen 5 mg/dL (9-23); Calcium 8.7 mg/dL (8.3-10.6); Calcium (Corrected) 9.0 mg/dL (8.5-10.1); Carbon Dioxide 23.7 mMol/L (20.0-31.0); Chloride 106 mMol/L (98-107); Creatinine (Component) 0.5 mg/dL (0.6-1.3); Estimated Creatinine Clearance 80.2 mL/min (>60); Globulin 2.8 gm/dL (2.3-3.5); Glucose 113 mg/dL (74-106); Magnesium 1.7 mg/dL (1.6-2.6); Osmolality,Calculated 266 (275-295); Phosphorous 4.1 mg/dL (2.4-5.1); Potassium 3.7 mMol/L (3.4-5.1); Sodium 134 mMol/L (136-145); Total Protein 6.4 gm/dL (5.7-8.2); eGFR > 60 See Note
[2025-01-31] MEDS: SENNA/DOCUSATE SOD 1 TAB TABLET PO (08:26)
[2025-01-31] MEDS: NICOTINE PATCH 14 MG/24 HR PATCH.TD24 TOP (08:26)
[2025-01-31] MEDS: GABAPENTIN 300 MG CAPSULE 600 MG PO ×2 (08:26→21:14)
[2025-01-31] MEDS: LIDOCAINE 5% 1 PATCH TOP (08:31)
[2025-01-31] MEDS: PANTOPRAZOLE 40 MG TABLET PO (10:54)
--- NOTE | 2025-01-31 12:04 | PD.RESPRO ---
Documentation for date of: 01/31/25 Subjective Subjective Interval history: No acute events overnight.?Patient seen and examined at bedside this AM.?She reports that her gluteal pain has been improving. She has been able to increase her mobility gradually. Patient is still interested in SNF. Will need insurance authorization per criminal justice social worker. Labs and vitals were reviewed and were stable. Patient was started on Maalox prn and pantoprazole for GERD symptoms. No further complaints at this time. Review of systems otherwise negative except what is mentioned above. Exam Vital Signs Temp Pulse Resp BP Pulse Ox O2 Del Method 97.8 F 101 H 18 116/60 96 Room Air 01/31/25 08:00 01/31/25 10:38 01/31/25 10:38 01/31/25 08:00 01/31/25 10:38 01/31/25 04:00 Narrative Exam GENERAL: A&Ox3 awake, in no significant distress NEURO: no focal neurological deficits HEENT: Atraumatic, Normocephalic. mucous membranes moist. Eyes open, symmetrical, & clear HEART: Normal Heart Sounds LUNGS: Clear to auscultation with no wheezing or crackles. ABDOMEN: soft, non-distended, non-tender, bowel sounds heard, no guarding or rebound tenderness SKIN: No Rash or ecchymoses EXTREMITIES: No edema, able to move all 4 extremities, pedal pulses palpated Objective Labs 01/31/25 05:18 01/31/25 05:18 Labs: Laboratory Results - last 24 hr 01/31/25 05:18 WBC 10.9 RBC 3.50 L Hgb 10.4 L Hct 31.4 L MCV 90 MCH 29.7 MCHC 33.1 RDW Std Deviation 43.5 Plt Count 343 Neut % (Auto) 73 Lymph % (Auto) 17 [place] % (Auto) 9 Eos % (Auto) 0 Baso % (Auto) 0 Neut # (Auto) 8.0 H Lymph # (Auto) 1.8 [place] # (Auto) 1.0 H Eos # (Auto) 0.0 Baso # (Auto) 0.0 Immature Gran # (Auto) 0.05 H Absolute Nucleated RBC 0.00 Immature Gran % 1 H Nucleated RBC % 0 Sodium 134 L Potassium 3.7 Chloride 106 Carbon Dioxide 23.7 Anion Gap 4 L BUN 5 L Creatinine 0.5 L Estim Creat Clear Calc 80.2 eGFR > 60 BUN/Creatinine Ratio 10 L Glucose 113 H Calculated Osmolality 266 L Calcium 8.7 Corrected Calcium 9.0 Phosphorus 4.1 Magnesium 1.7 Total Bilirubin 0.4 AST 15 ALT 15 Alkaline Phosphatase 107 Total Protein 6.4 Albumin 3.6 Globulin 2.8 Albumin/Globulin Ratio 1.3 Quality Measures Quality Measures none Advance care planning discussed with:: patient Assessment & Plan Assessment Current Active Medications: Generic Name Dose Route Start Last Admin Trade Name Freq PRN Reason Stop Dose Admin Hydrocodone Bitart/Acetaminophen 1 tab 01/29/25 11:44 01/31/25 08:26 Hydrocodone/Apap 10/325 Tab PO 02/03/25 11:43 1 tab Q4HR PRN Administration Moderate Pain 4-6 Al Hydrox/Mg Hydrox/Simethicone 30 ml 01/31/25 10:49 Mg Hyd/Al Hyd/[place] (Maalox Reg) Susp 30 Ml Udc PO 03/02/25 10:48 Q4HR PRN UPSET STOMACH/INDIGESTION Albuterol/Ipratropium 3 ml 01/29/25 20:06 Albuterol/Ipratropium (Duoneb) Rt [place] 3 Ml Nebu INH 02/28/25 20:05 Q2HR PRN SHORTNESS OF BREATH OR WHEEZE Gabapentin 600 mg 01/30/25 13:10 01/31/25 08:26 Gabapentin 300 Mg Capsule PO 03/01/25 13:09 600 mg BID SANDRA Administration Heparin Sodium (Porcine) 5,000 unit 01/29/25 22:00 01/31/25 05:19 Heparin Sod Inj 5000 Unit/Ml Vial SC 02/12/25 21:59 5,000 unit Q8HR SANDRA Administration Hydromorphone HCl 1 mg 01/30/25 09:46 01/31/25 10:54 Hydromorphone Inj 2 Mg/Ml Vial IVP 02/04/25 09:19 1 mg Q4HR PRN Administration Pain 7-10 Lidocaine 1 patch 01/29/25 11:41 01/31/25 08:31 Lidocaine 5% 1 Patch TOP 02/28/25 11:40 1 patch DAILY PRN Administration LOCALIZED PAIN Nicotine 14 mg 01/30/25 10:15 01/31/25 08:26 Nicotine Patch 14 Mg/24 Hr Patch.Td24 TOP 03/01/25 10:14 14 mg QDAY SANDRA Administration Pantoprazole Sodium 40 mg 01/31/25 11:00 01/31/25 10:54 Pantoprazole 40 Mg Tablet PO 03/02/25 10:59 40 mg QDAY SANDRA Administration Sennosides 1 tab 01/30/25 10:15 01/31/25 08:26 Senna/Docusate Sod 1 Tab Tablet PO 03/01/25 10:14 1 tab QDAY SANDRA Administration Protocol Trazodone HCl 150 mg 01/30/25 21:00 01/30/25 21:31 Trazodone Hcl 50 Mg Tablet PO 03/01/25 20:59 150 mg HS SANDRA Administration Plan Ms. Henry is a 74-year-old female with past medical history significant for COPD (not on home oxygen), hypertension, peripheral artery disease, coronary artery disease 1 stent presented to the ED after ground-level fall. Patient is admitted due to intractable pain secondary to coccygeal fracture. #Ground-level, mechanical fall #First coccygeal segment fracture #Intractable pain #Possible cortical erosions, L5-S1 #History of spinal surgery with hardware placement, unspecified specific type -Patient had a ground-level fall and following the fall patient had intractable pain without improvement. -Pt has extensive history of multiple orthopedic surgeries, including lumbar surgery in Mar 2024 and revision in December 2024. And is in chronic pain and is being seen by pain management. CT of pelvis: Suspicious for a small nondisplaced fracture first coccygeal segment, cortical erosions along the contiguous endplate L5-S1 However, MRI study does not confirm osteomyelitis or discitis at the L5-S1 level. Plan: -Pain control with as needed Dilaudid, [place] 10-325, and lidocaine patch -Continue home gabapentin 600 mg BID -Physical therapy following #Primary hypertension -On admission patient's blood pressure is 152/68 however without any medication drop to 111/80 Plan: -Will hold antihypertensives due to normotension #COPD #Tobacco use disorder -Patient continues to smoke half a pack of cigarettes daily for the past 68 years -Does not use home oxygen, however he uses Trelegy inhaler as well as albuterol Plan: -Nicotine patch 14 mg every 24 hours -DuoNebs ordered as needed #History of CAD s/p stent #History of PAD s/p bypass Per patient she does not take aspirin or Plavix. Patient had 1 cardiac stent placed by Dr. Steele approximately 10 years ago. Patient currently regularly follows up with Dr. Monk and per patient this is agreed upon. Patient does not take blood thinners due to history of GI bleed and frequent bruising. Health Maintenance Disposition: Medsurg DVT Prophylaxis: Heparin 5000 units SC Q8 hrs GI Prophylaxis: Pantoprazole 40 mg PO qday Diet: Regular diet Lines: Peripheral lines Code status: DNR/DNI Patient plan of care was discussed with the attending physician, Dr. Jacobson. Nikkie García, PGY-2 Attending Provider Attestation/Addendum I have discussed and was present for the essential components of the history, physical examination, diagnosis, and treatment plan with the resident. I agree with the patient's care as documented by the resident and amended herein by me. Rajan Jacobson, . Patient seen and evaluated this AM. No acute events overnight, vital signs stable, patient afebrile. Patient does state her pain is a bit improved today. Patient would like to go to SNF, she her family agrees as they have difficulty assisting her at home. Will continue pain control with Dilaudid for now as she can tolerate this medication, authorization for SNF pending. Patient can be discharged once we obtain SNF placement for her. Again she has an appointment next week with pain management and will need follow-up with her neurosurgeon who was done many of her previous back surgeries for continued evaluation and treatment. Although this document has been carefully reviewed, there may still be some phonetic and other typographical errors. These errors are purely grammatical due to imperfections in the software program and should not be construed in any way to compromise the substance of the patient's medical care during this visit.
[2025-01-31] MEDS: MG HYD/AL HYD/SIME (Maalox Reg) SUSP 30 ML UDC PO (12:07)
[2025-01-31] MEDS: TRELEGY 1 EA INH (20:32)
[2025-02-01] VITALS (8 sets, daily range): BP systolic 91–154; BP diastolic 48–88; PULSE 68–110; RESP 16–97; TEMP 36.1–36.8; O2SAT 91–100; BMI 24.5
[2025-02-01] MEDS: HYDROmorphone INJ 2 MG/ML VIAL 1 MG IVP ×4 (01:14→14:15)
[2025-02-01] MEDS: HEPARIN SOD INJ 5000 UNIT/ML VIAL SC ×3 (05:30→21:56)
[2025-02-01 06:10] LABS: Basophils # (Auto) 0.0 Thou/mm3 (0.0-0.2); Basophils % (Auto) 0 % (0-2.5); Eosinophils # (Auto) 0.0 Thou/mm3 (0.0-0.5); Eosinophils % (Auto) 1 % (0-10); Hematocrit 32.9 % (36.0-46.0); Hemoglobin 11.2 g/dL (12.0-16.0); Immature Granulocytes Auto 0.02 Thou/mm3 (0.00-0.00); Lymphocytes # (Auto) 1.3 Thou/mm3 (1.0-4.8); Lymphocytes % (Auto) 15 % (10-50); Mean Corpuscular HGB Conc 34.0 g/dl (31.0-37.0); Mean Corpuscular Hemoglobin 29.9 pg (25.0-35.0); Mean Corpuscular Volume 88 fL (80-100); Monocytes # (Auto) 1.0 Thou/mm3 (0.0-0.8); Monocytes % (Auto) 11 % (0-12); Neutrophils # (Auto) 6.2 Thou/mm3 (1.8-7.7); Neutrophils % (Auto) 73 % (37-80); Nucleated Red Blood Cell # 0.00 Thou/mm3 (0.00-0.00); Nucleated Red Blood Cell % 0 /100 WBC (0); Platelet Count 371 Thou/mm3 (140-440); RDW Standard Deviation 42.5 fL (36.4-46.3); Red Blood Count 3.74 Miln/mm3 (4.00-5.20); White Blood Count 8.5 Thou/mm3 (3.6-11.0)
[2025-02-01] MEDS: TRELEGY 1 EA INH (06:17)
[2025-02-01 06:38] LABS: Alanine Aminotransferase 15 U/L (10-49); Albumin, Serum 3.9 gm/dL (3.4-4.8); Albumin/Globulin Ratio 1.3 (1.2-2.2); Alkaline Phosphatase 118 U/L (46-116); Anion Gap 6 (7-16); Aspartate Amino Transferase 16 U/L (0-34); BUN/Creatinine Ratio 8 Ratio (12-20); Bilirubin,Total 0.4 mg/dL (0.3-1.2); Blood Urea Nitrogen < 5 mg/dL (9-23); Calcium 9.1 mg/dL (8.3-10.6); Calcium (Corrected) 9.2 mg/dL (8.5-10.1); Carbon Dioxide 26.7 mMol/L (20.0-31.0); Chloride 105 mMol/L (98-107); Creatinine (Component) 0.6 mg/dL (0.6-1.3); Estimated Creatinine Clearance 66.9 mL/min (>60); Globulin 3.1 gm/dL (2.3-3.5); Glucose 115 mg/dL (74-106); Magnesium 1.9 mg/dL (1.6-2.6); Osmolality,Calculated 273 (275-295); Phosphorous 3.7 mg/dL (2.4-5.1); Potassium 4.3 mMol/L (3.4-5.1); Sodium 138 mMol/L (136-145); Total Protein 7.0 gm/dL (5.7-8.2); eGFR > 60 See Note
[2025-02-01] MEDS: PANTOPRAZOLE 40 MG TABLET PO (08:01)
[2025-02-01] MEDS: SENNA/DOCUSATE SOD 1 TAB TABLET PO (08:01)
[2025-02-01] MEDS: NICOTINE PATCH 14 MG/24 HR PATCH.TD24 TOP (08:01)
[2025-02-01] MEDS: GABAPENTIN 300 MG CAPSULE 600 MG PO ×2 (08:01→20:04)
--- NOTE | 2025-02-01 10:22 | PC.SS ---
Insurance authorization is not pending. SNF inquiry has recently been sent on [facility]. SS met with pt and spoke to her dtr, Kaitlin [phone] (by phone) and they are requesting a SNF in [place]. Pt is open to SNFs in [place] if the SNFs in the [place] area are not an option. Once pt has been accepted to SNF then insurance authorization will be started.
--- NOTE | 2025-02-01 12:06 | PC.SS ---
Addendum entered by Suzie Schmitt 02/01/25 12:51: SS spoke to Narda from [facility] who explained after reviewing inquiry, pt is high level functioning, contact guard assist, and inquiry requires to be sent to the medical research associate for review. SS has informed dtr. Addendum entered by Suzie Schmitt 02/01/25 12:34: PASRR assessment has been initiated and Level II Mental Health Evaluation referral is required. SS spoke to Narda from patient's health insurance, phone# [phone] Ref# [id number] who explained [facility] is out of network. SS has explained family is requesting a SNF in town due to having to pay for transportation. Narda explained inquiry is being reviewed. Original Note: SS met with pt and spoke to dtr, Lucy [phone] to provide verbal choices for SNF. Pt and dtrs are aware pt does not have insurance coverage for transportation. Transportation will have be private pay. Daughter's choice now is [facility] instead of [facility]. SS has spoken to Aster at [facility] who is starting insurance authorization. Insurance authorization is now pending. [facility] [address], [place] [phone] Assisted Facility No 02/01/2025 11:20 02/01/2025 10:21 Unable to meet specialty/medical needs ?(1) [facility] [address] [place], [place] [phone] Assisted Facility 02/01/2025 10:21 ?(1) [facility] [address] [place] [address] Assisted Facility Yes 02/01/2025 10:59 02/01/2025 10:21 We can accept this patient. Thank you for your referral ?(3) [facility] [place], [place] [phone] Assisted Facility 02/01/2025 10:21 ?(1) [facility], [place] [phone] Assisted Facility 02/01/2025 10:21 ?(1) [facility], [place] [phone] Assisted Facility Considering 02/01/2025 11:19 02/01/2025 10:21 Verifying insurance ?(2) [facility] [address] [place] [phone] Assisted Facility 02/01/2025 10:21 ?(1) [facility] [address] [place] [address] Assisted Facility No 02/01/2025 10:24 02/01/2025 10:21 Unable to meet specialty/medical needs ?(1) [facility] [address] [place] [address] Assisted Facility Yes 02/01/2025 10:28 02/01/2025 10:21 We can accept this patient. Thank you for your referral ?(4) [facility] [address], [place] [phone] Assisted Facility Considering 02/01/2025 10:25 [facility], [place] [phone] Assisted Facility Yes 02/01/2025 10:28 02/01/2025 10:21 We can accept this patient. Thank you for your referral ?(2) [facility], [place] [phone] Assisted Facility Considering 02/01/2025 11:11 02/01/2025 10:21 Verifying insurance ?(2) [facility] [address] [place] [address] Assisted Facility No 02/01/2025 10:48 02/01/2025 10:21 No bed available ?(1) [facility] [place], [place] [phone] Assisted Facility No 02/01/2025 10:26 02/01/2025 10:21 Insurance out of network ?(1) [facility] [address] [place] [address] Assisted Facility 02/01/2025 10:21 ?(1) [facility] [place] [address] Assisted Facility Yes 02/01/2025 10:22 02/01/2025 10:21 We can accept this patient. Thank you for your referral ?(1) [facility] [address] [place] [address] Assisted Facility Yes 02/01/2025 10:26 02/01/2025 10:21 We can accept this patient. Thank you for your referral ?(2) [facility] [address] [place] [phone] Assisted Facility Yes 02/01/2025 10:54 02/01/2025 10:21 We can accept this patient. Thank you for your referral ?(2) [facility], [place] [phone] Assisted Facility No 02/01/2025 11:15 02/01/2025 10:21 Other ?(2) [facility] [address], [place] [phone] Assisted Facility No [facility] [place], [place] [phone] Assisted Facility Yes 02/01/2025 11:22 02/01/2025 10:21 We can accept this patient. Thank you for your referral ?(5)
--- NOTE | 2025-02-01 14:48 | ESPR_ITS ---
Documentation for date of: 02/01/25 Subjective Subjective Interval history: No acute overnight events reported. Pt is seen and examined at bedside this morning. Vitals are stable, patient has remained afebrile and labs are within normal limits. Pt is sitting at the edge of the bed, endorsing pain is well controlled. Pt will need acute rehab authorization. For now will transition pt to oral pain meds with dialudid and discontinue IV pain meds. Pt will need to be discharged on lidocaine patch and follow up with face painter as well as her Dr. Reyes. Pt has no other complaints. Exam Vital Signs Temp Pulse Resp BP Pulse Ox O2 Del Method 97.8 F 99 18 104/71 95 Room Air 02/01/25 12:00 02/01/25 12:00 02/01/25 12:00 02/01/25 12:00 02/01/25 12:02/01/25 12:00 Narrative Exam GENERAL: A&Ox3 awake, in no significant distress NEURO: no focal neurological deficits HEENT: Atraumatic, Normocephalic. mucous membranes moist. Eyes open, symmetrical, & clear HEART: Normal Heart Sounds LUNGS: Clear to auscultation with no wheezing or crackles. ABDOMEN: soft, non-distended, non-tender, bowel sounds heard, no guarding or rebound tenderness SKIN: No Rash or ecchymoses EXTREMITIES: No edema, able to move all 4 extremities, pedal pulses palpated Objective Labs 02/01/25 05:00 02/01/25 05:00 Labs: Laboratory Results - last 24 hr 02/01/25 05:00 WBC 8.5 RBC 3.74 L Hgb 11.2 L Hct 32.9 L MCV 88 MCH 29.9 MCHC 34.0 RDW Std Deviation 42.5 Plt Count 371 Neut % (Auto) 73 Lymph % (Auto) 15 [place] % (Auto) 11 Eos % (Auto) 1 Baso % (Auto) 0 Neut # (Auto) 6.2 Lymph # (Auto) 1.3 [place] # (Auto) 1.0 H Eos # (Auto) 0.0 Baso # (Auto) 0.0 Immature Gran # (Auto) 0.02 H Absolute Nucleated RBC 0.00 Immature Gran % 0 Nucleated RBC % 0 Sodium 138 Potassium 4.3 D Chloride 105 Carbon Dioxide 26.7 Anion Gap 6 L BUN < 5 L Creatinine 0.6 Estim Creat Clear Calc 66.9 eGFR > 60 BUN/Creatinine Ratio 8 L Glucose 115 H Calculated Osmolality 273 L Calcium 9.1 Corrected Calcium 9.2 Phosphorus 3.7 Magnesium 1.9 Total Bilirubin 0.4 AST 16 ALT 15 Alkaline Phosphatase 118 H Total Protein 7.0 Albumin 3.9 Globulin 3.1 Albumin/Globulin Ratio 1.3 Quality Measures Quality Measures none Advance care planning discussed with:: patient Assessment & Plan Assessment Current Active Medications: Generic Name Dose Route Start Last Admin Trade Name Freq PRN Reason Stop Dose Admin Hydrocodone Bitart/Acetaminophen 1 tab 01/29/25 11:44 02/01/25 11:42 Hydrocodone/Apap 10/325 Tab PO 02/03/25 11:43 1 tab Q4HR PRN Administration Moderate Pain 4-6 Al Hydrox/Mg Hydrox/Simethicone 30 ml 01/31/25 10:49 01/31/25 12:07 Mg Hyd/Al Hyd/Dominick (Maalox Reg) Susp 30 Ml Udc PO 03/02/25 10:48 30 ml Q4HR PRN Administration UPSET STOMACH/INDIGESTION Albuterol/Ipratropium 3 ml 01/29/25 20:06 Albuterol/Ipratropium (Duoneb) Rt [place] 3 Ml Nebu INH 02/28/25 20:05 Q2HR PRN SHORTNESS OF BREATH OR WHEEZE Gabapentin 600 mg 01/30/25 13:10 02/01/25 08:01 Gabapentin 300 Mg Capsule PO 03/01/25 13:09 600 mg BID SANDRA Administration Heparin Sodium (Porcine) 5,000 unit 01/29/25 22:00 02/01/25 14:15 Heparin Sod Inj 5000 Unit/Ml Vial SC 02/12/25 21:59 5,000 unit Q8HR SANDRA Administration Hydromorphone HCl 1 mg 01/30/25 09:46 02/01/25 14:15 Hydromorphone Inj 2 Mg/Ml Vial IVP 02/04/25 09:19 1 mg Q4HR PRN Administration Pain 7-10 Lidocaine 1 patch 01/29/25 11:41 01/31/25 08:31 Lidocaine 5% 1 Patch TOP 02/28/25 11:40 1 patch DAILY PRN Administration LOCALIZED PAIN Losartan Potassium 50 mg 02/01/25 09:15 02/01/25 10:00 Losartan Potassium 25 Mg Tablet PO 03/03/25 09:14 Not Given QDAY SANDRA Nicotine 14 mg 01/30/25 10:15 02/01/25 08:01 Nicotine Patch 14 Mg/24 Hr Patch.Td24 TOP 03/01/25 10:14 14 mg QDAY SANDRA Administration Pantoprazole Sodium 40 mg 01/31/25 11:00 02/01/25 08:01 Pantoprazole 40 Mg Tablet PO 03/02/25 10:59 40 mg QDAY SANDRA Administration Trelegy (Fluticasone 1 ea 01/31/25 18:15 02/01/25 06:17 -Umeclidinium- INH 03/02/25 18:14 1 puff Vilanterol 200 Mcg- QDAY SANDRA Administration 62.5 Mcg-25 Mcg) Inhaler Sennosides 1 tab 01/30/25 10:15 02/01/25 08:01 Senna/Docusate Sod 1 Tab Tablet PO 03/01/25 10:14 1 tab QDAY SANDRA Administration Protocol Trazodone HCl 150 mg 01/30/25 21:00 01/31/25 21:13 Trazodone Hcl 50 Mg Tablet PO 03/01/25 20:59 150 mg HS SANDRA Administration Plan Ms. Henry is a 74-year-old female with past medical history significant for COPD (not on home oxygen), hypertension, peripheral artery disease, coronary artery disease 1 stent presented to the ED after ground-level fall. Patient is admitted due to intractable pain secondary to coccygeal fracture. #Ground-level, mechanical fall #First coccygeal segment fracture #Intractable pain #Possible cortical erosions, L5-S1 #History of spinal surgery with hardware placement, unspecified specific type -Patient had a ground-level fall and following the fall patient had intractable pain without improvement. -Pt has extensive history of multiple orthopedic surgeries, including lumbar surgery in Mar 2024 and revision in December 2024. And is in chronic pain and is being seen by pain management. CT of pelvis: Suspicious for a small non-displaced fracture first coccygeal segment, cortical erosions along the contiguous endplate L5-S1 However, MRI study does not confirm osteomyelitis or discitis at the L5-S1 level. Plan: -Pain control with as needed Dilaudid PO, [place] 10-325 PO, and lidocaine patch -Continue home gabapentin 600 mg BID -Physical therapy following -Pending rehab authorization #Primary hypertension -On admission patient's blood pressure is 152/68 however without any medication drop to 111/80 Plan: -Will hold antihypertensives due to normotension #COPD #Tobacco use disorder -Patient continues to smoke half a pack of cigarettes daily for the past 68 years -Does not use home oxygen Plan: -Nicotine patch 14 mg every 24 hours -Continue home trelegy -DuoNebs ordered as needed #History of CAD s/p stent #History of PAD s/p bypass Per patient she does not take aspirin or Plavix. Patient had 1 cardiac stent placed by Dr. Steele approximately 10 years ago. Patient currently regularly follows up with Dr. Monk and per patient this is agreed upon. Patient does not take blood thinners due to history of GI bleed and frequent bruising. Health Maintenance Disposition: Medsur DVT Prophylaxis: Heparin 5000 units SC Q8 hrs GI Prophylaxis: Pantoprazole 40 mg PO qday Diet: Regular diet Lines: Peripheral lines Code status: DNR/DNI Assessment and plan discussed with my attending physician Dr. Kavon Parra (PGY-1)- Internal medicine resident Attending Provider Attestation/Addendum I have discussed and was present for the essential components of the history, physical examination, diagnosis, and treatment plan with the resident. I agree with the patient's care as documented by the resident and amended herein by me. Rajan Jacobson DO. Patient seen and evaluated this AM. Patient doing very well, sitting up in bed today which is a big improvement. Will keep on oral Dilaudid for now, patient does have an appointment with pain management in approximately 1 week, patient will also need to follow-up with her neurosurgeon, Dr. Kenny in [place] for continued workup and evaluation for chronic pain considering multiple surgeries and hardware in her spine. Patient will be discharged to SNF hopefully tomorrow 02/02 however insurance authorization pending. If insurance refuses to cover SNF, the patient may have to go home with home health for physical therapy. Although this document has been carefully reviewed, there may still be some phonetic and other typographical errors. These errors are purely grammatical due to imperfections in the software program and should not be construed in any way to compromise the substance of the patient's medical care during this visit.
[2025-02-01] MEDS: HYDROMORPHONE HCL 2 MG TABLET PO (20:03)
[2025-02-01] MEDS: MG HYD/AL HYD/SIME (Maalox Reg) SUSP 30 ML UDC PO (20:04)
[2025-02-02] VITALS (7 sets, daily range): BP systolic 101–128; BP diastolic 61–96; PULSE 90–114; RESP 16–96; TEMP 36.3–36.5; O2SAT 91–96; BMI 13.0
[2025-02-02] MEDS: HYDROMORPHONE HCL 2 MG TABLET PO ×3 (04:24→13:32)
[2025-02-02] MEDS: HEPARIN SOD INJ 5000 UNIT/ML VIAL SC ×2 (05:43→13:32)
[2025-02-02] MEDS: LIDOCAINE 5% 1 PATCH TOP (05:49)
[2025-02-02] MEDS: TRELEGY 1 EA INH (06:50)
[2025-02-02 06:51] LABS: Alanine Aminotransferase 13 U/L (10-49); Albumin, Serum 3.9 gm/dL (3.4-4.8); Albumin/Globulin Ratio 1.3 (1.2-2.2); Alkaline Phosphatase 109 U/L (46-116); Anion Gap 5 (7-16); Aspartate Amino Transferase 13 U/L (0-34); BUN/Creatinine Ratio 8 Ratio (12-20); Bilirubin,Total 0.4 mg/dL (0.3-1.2); Blood Urea Nitrogen 5 mg/dL (9-23); Calcium 9.2 mg/dL (8.3-10.6); Calcium (Corrected) 9.3 mg/dL (8.5-10.1); Carbon Dioxide 27.5 mMol/L (20.0-31.0); Chloride 105 mMol/L (98-107); Creatinine (Component) 0.6 mg/dL (0.6-1.3); Estimated Creatinine Clearance 65.0 mL/min (>60); Globulin 3.1 gm/dL (2.3-3.5); Glucose 124 mg/dL (74-106); Magnesium 1.9 mg/dL (1.6-2.6); Osmolality,Calculated 272 (275-295); Phosphorous 3.4 mg/dL (2.4-5.1); Potassium 3.9 mMol/L (3.4-5.1); Sodium 137 mMol/L (136-145); Total Protein 7.0 gm/dL (5.7-8.2); eGFR > 60 See Note
[2025-02-02 06:55] LABS: Basophils # (Auto) 0.0 Thou/mm3 (0.0-0.2); Basophils % (Auto) 0 % (0-2.5); Eosinophils # (Auto) 0.1 Thou/mm3 (0.0-0.5); Eosinophils % (Auto) 1 % (0-10); Hematocrit 32.6 % (36.0-46.0); Hemoglobin 10.9 g/dL (12.0-16.0); Immature Granulocytes Auto 0.02 Thou/mm3 (0.00-0.00); Lymphocytes # (Auto) 1.6 Thou/mm3 (1.0-4.8); Lymphocytes % (Auto) 22 % (10-50); Mean Corpuscular HGB Conc 33.4 g/dl (31.0-37.0); Mean Corpuscular Hemoglobin 29.3 pg (25.0-35.0); Mean Corpuscular Volume 88 fL (80-100); Monocytes # (Auto) 0.9 Thou/mm3 (0.0-0.8); Monocytes % (Auto) 11 % (0-12); Neutrophils # (Auto) 5.0 Thou/mm3 (1.8-7.7); Neutrophils % (Auto) 66 % (37-80); Nucleated Red Blood Cell # 0.00 Thou/mm3 (0.00-0.00); Nucleated Red Blood Cell % 0 /100 WBC (0); Platelet Count 402 Thou/mm3 (140-440); RDW Standard Deviation 42.4 fL (36.4-46.3); Red Blood Count 3.72 Miln/mm3 (4.00-5.20); White Blood Count 7.6 Thou/mm3 (3.6-11.0)
[2025-02-02] MEDS: NICOTINE PATCH 14 MG/24 HR PATCH.TD24 TOP (08:44)
[2025-02-02] MEDS: LOSARTAN POTASSIUM 25 MG TABLET 50 MG PO (08:45)
[2025-02-02] MEDS: GABAPENTIN 300 MG CAPSULE 600 MG PO (08:45)
[2025-02-02] MEDS: SENNA/DOCUSATE SOD 1 TAB TABLET PO (08:45)
[2025-02-02] MEDS: PANTOPRAZOLE 40 MG TABLET PO (08:46)
--- NOTE | 2025-02-02 10:14 | PC.SS ---
SS received call from Timothy, patient's health insurance who explained their medical grade shoemaker is requesting a peer to peer with our physician. option #5 for peer to peer before 1pm. SS has met with Dr. Jacobson and provided him with phone# and patient's information. Rupa ETIENNE is aware. Aster from [facility] is aware.
--- NOTE | 2025-02-02 11:10 | PC.SS ---
Addendum entered by LOWELL Pringle 02/02/25 16:38: SS update: Per Bedside Ramon the patient has voided and is ready for d/c to [facility]. Facility informs their driver examiner is out for the day and patient will need transport services arranged to d/c. Patient does not have coverage for transport. [facility] transport services was contacted and provided citrus picker ETA for 6:15pm. MARLINE Patton and [facility] staff Aster were updated. Addendum entered by LOWELL Pringle 02/02/25 15:02: SS update: patient is pending to void before d/c. Addendum entered by LOWELL Pringle 02/02/25 13:32: SS update: per Aster at [facility], patient was approved for authorization to SNF. Updated bedside-MARLINE Patton and resident Dr. Louis. Pending d/c orders. Original Note: SS update: patient's health insurance medical professionals is requesting a peer to peer discussion with patient's attending physician. planner internship Suzie has provided Dr. Jacobson with the insurance's contact information to initiate the peer to peer discussion today. Bed side RN-Pooja was updated.
--- NOTE | 2025-02-02 15:38 | PD.RESDS ---
Planned Discharge Date 02/02/25 DS: Providers Provider Date of admission: 01/29/25 09:57 Primary care physician: Arabella Barney MD Admitting Provider: Doug Jacobson DO Attending Provider on Admission: Nikkie García MD Consults: 01/29/25 16:03 Referral Physical Therapy Routine Comment: Physician Instructions: 01/30/25 06:16 Health Equity Referral - Knowledge Deficit Routine Comment: Positive screening for knowledge deficit needs. Attending Provider on DC: Winifred Chávez MD Discharging Provider: Winifred Chávez MD DS: Diagnosis Problem List Completed Was Problem List Reviewed/Reconciled?: Yes Hospital Course Hospital Course Hospital course: Summary: Patient is a 74-year-old female with past medical history of CAD severe atherosclerosis w 85% discrete stenosis of mid RCA-possible PCI, hypertension, hyperlipidemia, PAD status post aortobifemoral bypass graft and status angioplasty for peripheral vascular disease, COPD (not on oxygen), history of chronic back pain who was admitted on 01/29/2025 secondary to ground level mechanical fall. In the ED patient's blood pressure is 152/68, pulse 107, respirations 18, patient saturating 97% on room air Labs are significant for WBC 14.6, hemoglobin 11.6, hematocrit 34.4 In the ED patient received Zofran x 2, fentanyl 100 mcg x 2 Dilaudid 1 mg x 1 Hospital Course: During hospital course, patient lumbar spine MRI noted for transpedicular fusion of L4-S1 w/ disc spacers diffuse lumbar and dissociation. Hip and Pelvix x-ray no acute fracture noted. Pelvis CT noted for displaced first coccygeal segment. Patient required pain managemenent through out entire hospital course given acute fracture and chronic history of back back s/p surgery with Dilaudid IV, oral [place] and Lidocaine patch, eventually transitioned to oral Dilaudid. Hypertensive medication held as normal tensive. SNF evaluated patinet and is recommended SNF placmenet which patinet will be discharge to SNF. #Ground-level, mechanical fall #First coccygeal segment fracture #Intractable pain #Possible cortical erosions, L5-S1 #History of spinal surgery with hardware placement, unspecified specific type #Primary hypertension #COPD #Smoking history #History of CAD s/p stent #History of PAD s/p bypass Patient is safe to discharge to SNF. Instructions: Medication dose change: losartan 50mg qday . Please discontinue taking Bactrim, [place]. You have been started on new medication Hydromorphone/dilaudid 2mg, take 1 pill every 6hr as needed for pain. In case of excessive drowsiness or hypoxia, or concern for overdose, can give Naloxone sub cutaeneous as needed and return to the emergency department. Follow up with Primary care physician with labs within 3-5 days of discharge. If symptoms persist or worsen, return to the Emergency Department. - The patient's plan was discussed with attending Dr. Kavon Chávez MD PGY2 Internal Medicine Time Spent with Patient Time attestation: Total time spent providing and/or coordinating discharge services: at least 30 minutes of time and coordination Time spent: Greater than 30 minutes Exam Vital Signs Temp Pulse Resp BP Pulse Ox O2 Del Method 97.3 F 90 17 101/70 95 Room Air 02/02/25 12:02/02/25 12:02/02/25 12:02/02/25 12:02/02/25 12:02/02/25 12:00 Narrative Exam General Appearance: Alert & Oriented X3, well-nourished female who is lying in bed in mild discomfort secondary to lumbar pain. HEENT: Skull symmetrical and atraumatic. Conjunctivae pink and moist. Pupils equal, round, reactive to light and accommodation (PERRL). External ear without lesion or discharge. Straight, nares patient, mucosa pink, no discharge. No thyroid nodule appreciated. No cervical lymphadenopathy. Cardio: Normal Rate and Rhythm with S1 and S2 heart sounds. No murmurs or extra heart sounds auscultated. No bruits on carotid auscultation. No peripheral edema or cyanosis. Lungs: Symmetric with good expansion. Chest and back non-tender. Breath sounds vesicular without crackles, wheezing or rhonchi Abdomen: Non-tender, Non-distended, Normal Reactive Bowel Sounds Neuro: Alert, cooperative, oriented to person, place, and time. Speech clear. CN grossly intact. Upper motor strength 5/5 and Lower motor strength 5/5. Sensation intact. Discharge Plan Plan Patient Disposition: Xfer Skilled Nsg Fac (SNF) Care Plan Goals: Medication dose change: losartan 50mg qday . Please discontinue taking Bactrim, [place]. You have been started on new medication Hydromorphone/dilaudid 2mg, take 1 pill every 6hr as needed for pain. In case of excessive drowsiness or hypoxia, or concern for overdose, can give Naloxone sub cutaeneous as needed and return to the emergency department. Follow up with Primary care physician with labs within 3-5 days of discharge. If symptoms persist or worsen, return to the Emergency Department. Prescriptions/Referrals Prescriptions/Med Rec: New lidocaine 5 % Adhesive Patch,Medicated 1 patch top DAILY PRN (Reason: LOCALIZED PAIN) 14 Days Qty: 14 0RF losartan 50 mg tablet 50 mg PO QDAY 14 Days Qty: 14 0RF nicotine 14 mg/24 hr Patch 24 Hour 14 mg top QDAY Qty: 14 0RF hydromorphone 2 mg tablet 2 mg PO Q6H MDD 3-4 pills max pre day. PRN (Reason: pain) Qty: 20 0RF naloxone 1 mg/mL syringe 1 mg subcut Q2M PRN (Reason: opioid overdose) Qty: 2 0RF Rx Instructions: NTExceed 10 mg total dose/episode Continued cyclobenzaprine 10 mg Tablet 10 mg PO HS furosemide 40 mg Tablet 40 mg PO QDAY gabapentin 600 mg Tablet 600 mg PO BID aspirin 81 mg Tablet,Delayed Release (Dr/Ec) 81 mg PO QDAY bupropion HCl 100 mg Tablet 100 mg PO QDAY mirtazapine 30 mg Tablet 30 mg PO QDAY montelukast [Singulair] 10 mg Tablet 10 mg PO QDAY trazodone 100 mg Tablet 150 mg PO HS clopidogrel [Plavix] 75 mg Tablet 75 mg PO QDAY Qty: 90 0RF isosorbide mononitrate 30 mg Tablet Extended Release 24 Hr 30 mg PO QDAY Qty: 30 2RF atorvastatin 40 mg Tablet 40 mg PO QDAY carvedilol 6.25 mg Tablet 6.25 mg PO BID potassium chloride 10 mEq Tablet Extended Release 10 meq PO QDAY pantoprazole 40 mg Tablet,Delayed Release (Dr/Ec) 40 mg PO QDAY Qty: 90 0RF Trelegy Ellipta 200-62.5-25 mcg blister with device 1 inh INHALATION Q24H Discontinued losartan 100 mg Tablet 100 mg PO QDAY sulfamethoxazole-trimethoprim [Bactrim DS] 800-160 mg tablet 1 tab PO BID Qty: 14 0RF hydrocodone-acetaminophen 10-325 mg tablet 1 tab PO Q4H Patient Comments: take 1 tablet by mouth every 6 hours if needed for pain Referrals: Arabella Barney MD [Primary Care Provider] - Patient/Caregiver Discharge Instructions Print Language: Belarusian Stand Alone Forms: Dodie Award Info., Patient Portal Info Letter Discharge Order Discharge Orders: Discharge (Routine); Ordered 02/02/25 Ordered By: Destin Balderrama Quality Discharge Quality Measures VTE prophylaxis Attestestation MD Attestation I have discussed and was present for the essential components of the discharge history, physical examination, diagnosis, and discharge treatment plan with the resident. I agree with the patient's discharge care as documented by the resident and amended herein by me. Rajan Jacobson, DO. Patient discharged with course of oral Dilaudid for continued pain management, she does have an appoint with pain management on 10 February. She will also need follow-up with neurosurgeon, Dr. Kenny in [place] for further workup and management of her chronic spinal issues and pain. She will be discharged to SNF for short period of time 1 to 2 weeks until she improves further. Patient was stable, afebrile,, tolerating p.o. intake at time of discharge to SNF The patient understood all discharge instructions, all questions were answered satisfactorily. The patient was instructed to return to the Emergency Department is symptoms worsened or persisted. Although this document has been carefully reviewed, there may still be some phonetic and other typographical errors. These errors are purely grammatical due to imperfections in the software program and should not be construed in any way to compromise the substance of the patient's medical care during this visit.
== END 2025-02-02 18:26 | disposition skilled nursing facility (03) | DRG 551 ==
LOC: SERX 09:23 → SERHOLD 10:08 → S3SX 17:34
PROVIDERS: Admitting Provider Student in an Organized Health Care Education/Training Program; Emergency Provider Emergency Medicine; PCP Family Medicine; Visit Provider Student in an Organized Health Care Education/Training Program
DX: S32.2XXA Fracture of coccyx, initial encounter for closed fracture (principal); G92.8 Other toxic encephalopathy; J44.9 Chronic obstructive pulmonary disease, unspecified; I10 Essential (primary) hypertension; G89.29 Other chronic pain; I25.10 Atherosclerotic heart disease of native coronary artery without angina pectoris; D72.829 Elevated white blood cell count, unspecified; E78.5 Hyperlipidemia, unspecified; I73.9 Peripheral vascular disease, unspecified; W18.30XA Fall on same level, unspecified, initial encounter; F17.210 Nicotine dependence, cigarettes, uncomplicated; Z95.5 Presence of coronary angioplasty implant and graft; Z66 Do not resuscitate; Z79.899 Other long term (current) drug therapy; Z88.5 Allergy status to narcotic agent; T40.2X5A Adverse effect of other opioids, initial encounter
CPT/HCPCS: 36415; 72148; 72192; 73503; 80053; 82550; 83735; 84100; 85025; 87040; 94640; 96374; 96375; 96376; 97161; 99285; A4314; J1171; J1200; J1644; J2270; J2405; J3010; J3490; A9270

== ENCOUNTER → 2025-03-11 | Outpatient (CLI) | payer MEDICARE, SELFPAY ==
--- NOTE | 2025-03-11 13:03 | XR_ITS ---
Examination: AP pelvis single view Technique one AP portable supine pelvis single view Date and time: 03/11/2025 1355 hours INDICATIONS: Pelvic pain several years. FINDINGS: Healed left hip fracture with satisfactory alignment Orthopedic hardware left hip and traversing the iliac bone satisfactory position with transpedicular lower lumbar fusion partly visualized No significant hip joint narrowing Right hip bones of the pelvis intact IMPRESSION: No acute hip or pelvic fracture.
--- NOTE | 2025-03-11 13:03 | XR_ITS ---
Examination: Lumbar spine, 5 views Technique: Lumbar spine AP, lateral, coned lateral lower lumbar spine, bilateral obliques 5 views Exam date and time: March 11, 2025 at 1356 hours Comparison January 11, 2025 INDICATIONS: Low back pain radiating down both legs years, history low back surgery December 2024 FINDINGS: Severe osteopenia Transpedicular lumbar stabilization all lumbar vertebral bodies with satisfactory alignment, disc spacers Moderate lumbar spondylosis No acute lumbar fracture No cortical bone destruction IMPRESSION: Extensive lumbar stabilization with satisfactory alignment
== END | disposition home or self-care (01) ==
LOC: CDIM 12:42
PROVIDERS: PCP Family Medicine; Referring Provider Orthopaedic Surgery Orthopaedic Surgery of the Spine; Visit Provider Orthopaedic Surgery Orthopaedic Surgery of the Spine
DX: M54.16 Radiculopathy, lumbar region (principal); M54.51 Vertebrogenic low back pain; R10.2 Pelvic and perineal pain; Z47.89 Encounter for other orthopedic aftercare
CPT/HCPCS: 72110; 72170

== ENCOUNTER → 2025-06-08 | Outpatient (CLI) | payer MEDICARE, SELFPAY ==
[2025-06-08 13:55] LABS: Basophils # (Auto) 0.0 Thou/mm3 (0.0-0.2); Basophils % (Auto) 0 % (0-2.5); Eosinophils # (Auto) 0.1 Thou/mm3 (0.0-0.5); Eosinophils % (Auto) 2 % (0-10); Hematocrit 29.6 % (36.0-46.0); Hemoglobin 9.0 g/dL (12.0-16.0); Immature Granulocytes Auto 0.02 Thou/mm3 (0.00-0.00); Lymphocytes # (Auto) 1.6 Thou/mm3 (1.0-4.8); Lymphocytes % (Auto) 21 % (10-50); Mean Corpuscular HGB Conc 30.4 g/dl (31.0-37.0); Mean Corpuscular Hemoglobin 28.9 pg (25.0-35.0); Mean Corpuscular Volume 95 fL (80-100); Monocytes # (Auto) 0.4 Thou/mm3 (0.0-0.8); Monocytes % (Auto) 6 % (0-12); Neutrophils # (Auto) 5.5 Thou/mm3 (1.8-7.7); Neutrophils % (Auto) 72 % (37-80); Nucleated Red Blood Cell # 0.00 Thou/mm3 (0.00-0.00); Nucleated Red Blood Cell % 0 /100 WBC (0); Platelet Count 418 Thou/mm3 (140-440); RDW Standard Deviation 67.3 fL (36.4-46.3); Red Blood Count 3.11 Miln/mm3 (4.00-5.20); White Blood Count 7.6 Thou/mm3 (3.6-11.0)
[2025-06-08 14:06] LABS: Alanine Aminotransferase 312 U/L (10-49); Albumin, Serum 3.4 gm/dL (3.4-4.8); Albumin/Globulin Ratio 1.0 (1.2-2.2); Alkaline Phosphatase 140 U/L (46-116); Anion Gap 12 (7-16); Aspartate Amino Transferase 691 U/L (0-34); BUN/Creatinine Ratio 23 Ratio (12-20); Bilirubin,Total 0.2 mg/dL (0.3-1.2); Blood Urea Nitrogen 16 mg/dL (9-23); Calcium 8.8 mg/dL (8.3-10.6); Calcium (Corrected) 9.3 mg/dL (8.5-10.1); Carbon Dioxide 29.5 mMol/L (20.0-31.0); Chloride 103 mMol/L (98-107); Creatinine (Component) 0.7 mg/dL (0.6-1.3); Globulin 3.4 gm/dL (2.3-3.5); Glucose 80 mg/dL (74-106); Osmolality,Calculated 287 (275-295); Potassium 3.7 mMol/L (3.4-5.1); Sodium 144 mMol/L (136-145); Total Protein 6.8 gm/dL (5.7-8.2); eGFR > 60 See Note
== END | disposition home or self-care (01) ==
LOC: SLDO 12:43
PROVIDERS: Referring Provider Family Medicine; Visit Provider Hospitalist
DX: I33.0 Acute and subacute infective endocarditis (principal)
CPT/HCPCS: 36415; 80053; 85025

== ENCOUNTER → 2025-06-10 | Outpatient (CLI) | payer MEDICARE, SELFPAY ==
[2025-06-10 13:03] LABS: Basophils # (Auto) 0.0 Thou/mm3 (0.0-0.2); Basophils % (Auto) 0 % (0-2.5); Eosinophils # (Auto) 0.1 Thou/mm3 (0.0-0.5); Eosinophils % (Auto) 1 % (0-10); Hematocrit 29.7 % (36.0-46.0); Immature Granulocytes Auto 0.02 Thou/mm3 (0.00-0.00); Lymphocytes # (Auto) 1.7 Thou/mm3 (1.0-4.8); Lymphocytes % (Auto) 25 % (10-50); Mean Corpuscular HGB Conc 29.3 g/dl (31.0-37.0); Mean Corpuscular Hemoglobin 28.3 pg (25.0-35.0); Mean Corpuscular Volume 97 fL (80-100); Monocytes # (Auto) 0.6 Thou/mm3 (0.0-0.8); Monocytes % (Auto) 8 % (0-12); Neutrophils # (Auto) 4.6 Thou/mm3 (1.8-7.7); Neutrophils % (Auto) 65 % (37-80); Nucleated Red Blood Cell # 0.00 Thou/mm3 (0.00-0.00); Nucleated Red Blood Cell % 0 /100 WBC (0); Platelet Count 384 Thou/mm3 (140-440); RDW Standard Deviation 67.3 fL (36.4-46.3); Red Blood Count 3.07 Miln/mm3 (4.00-5.20); White Blood Count 7.0 Thou/mm3 (3.6-11.0)
[2025-06-10 13:14] LABS: Hemoglobin 8.7 g/dL (12.0-16.0)
[2025-06-10 13:18] LABS: Alanine Aminotransferase 134 U/L (10-49); Albumin, Serum 3.4 gm/dL (3.4-4.8); Albumin/Globulin Ratio 1.0 (1.2-2.2); Alkaline Phosphatase 143 U/L (46-116); Anion Gap 7 (7-16); Aspartate Amino Transferase 654 U/L (0-34); BUN/Creatinine Ratio 20 Ratio (12-20); Bilirubin,Total 0.2 mg/dL (0.3-1.2); Blood Urea Nitrogen 14 mg/dL (9-23); Calcium 8.8 mg/dL (8.3-10.6); Calcium (Corrected) 9.3 mg/dL (8.5-10.1); Carbon Dioxide 26.5 mMol/L (20.0-31.0); Chloride 108 mMol/L (98-107); Creatinine (Component) 0.7 mg/dL (0.6-1.3); Globulin 3.3 gm/dL (2.3-3.5); Glucose 83 mg/dL (74-106); Magnesium 2.0 mg/dL (1.6-2.6); Osmolality,Calculated 280 (275-295); Potassium 5.1 mMol/L (3.4-5.1); Sodium 141 mMol/L (136-145); Total Protein 6.7 gm/dL (5.7-8.2); eGFR > 60 See Note
[2025-06-10 13:55] LABS: Ferritin 255 ng/mL (7.3-270.7); Iron 43 mcg/dL (50-170)
== END | disposition home or self-care (01) ==
LOC: SLDO 12:08
PROVIDERS: Referring Provider Family Medicine; Visit Provider Family Medicine
DX: D64.9 Anemia, unspecified (principal); E87.6 Hypokalemia
CPT/HCPCS: 36415; 80053; 82728; 83540; 83735; 85025